=== PATIENT | female | born 1935 | race Caucasian/White ===

== ENCOUNTER 2017-11-21 11:30 | Day surgery (SDC) | payer OTHER ==
[2017-11-21] MEDS ORDERED: BUPIVACAINE 0.25% PF 10 ML VIAL ONE (11:54)
[2017-11-21] MEDS ORDERED: PHENYLEPHRINE 10% OPTH 5ML ONE (11:54)
[2017-11-21] MEDS ORDERED: TETRACAINE HCL 0.5% 2ML OPTH ONE (11:54)
[2017-11-21] MEDS ORDERED: NA CHLORIDE 0.9% 500 ML ONE (11:54)
[2017-11-21] MEDS ORDERED: CYCLOPENTOLATE 1% OPTH 2 ML ONE (11:54)
[2017-11-21] MEDS ORDERED: LIDOCAINE HCL/PF 3.5% OPTH GEL ONE (11:54)
[2017-11-21] MEDS ORDERED: LIDOCAINE 2% INJ, MPF 2 ML 0 ML ONE (11:54)
[2017-11-21] MEDS ORDERED: NS 0.9% VIAL 10 ML ONE (12:07)
[2017-11-21] MEDS ORDERED: EPINEPHRINE/PF 1 MG/ML AMP ONE (12:07)
[2017-11-21] MEDS ORDERED: BALANCED SALT IRRIG PLAIN 500 ML BTL IRR ONE (12:08)
[2017-11-21] MEDS ORDERED: DUOVISC 1 KIT OPTH ONE (12:09)
[2017-11-21] MEDS ORDERED: MOXIFLOXACIN HCL 10 DROPS/ML **OR USE OPTH ONE (12:09)
[2017-11-21] MEDS ORDERED: PHENYLEPHRINE 10% OPTH 5ML OPTH ONE ×2 (12:17→12:22)
[2017-11-21] MEDS ORDERED: CYCLOPENTOLATE 1% OPTH 2 ML OPTH ONE ×2 (12:17→12:22)
[2017-11-21] MEDS ORDERED: PROPOFOL 200 MG/20 ML VIAL IV ONE (13:33)
[2017-11-21] MEDS ORDERED: LIDOCAINE 1% MPF 5 ML VIAL ONE (13:33)
[2017-11-21] MEDS ORDERED: MIDAZOLAM HCL 2 MG/2 ML INJ ONE ×2 (13:39→13:43)
[2017-11-21] MEDS ORDERED: FENTANYL CITR 100 MCG/2 ML ONE (13:39)
[2017-11-21] MEDS ORDERED: LIDOCAINE 1% MPF 2 ML AMPULE ONE (13:47)
--- NOTE | 2017-11-21 14:29 | P.BOP ---
Preoperative diagnosis: Nuclear sclerotic cataract OS Postoperative diagnosis: Same Primary procedure: Phacoemulsification with IOL OS Estimated blood loss: None Anesthesia: Local (Topical with anesthesia for cataract surgery) Complications: None Implants: ZCB00 +19.0 Transferred to: Other (Day surgery) Condition: Good
--- NOTE | 2017-11-22 02:08 | OP ---
Date of Procedure: 11/21/2017 Surgeon: Raine Carreon MD Anesthesiologist: 1. Delonte Messer C.R.N.A. 2. Anatoly Randolph M.D. Preoperative Diagnosis: Nuclear sclerotic cataract, OS (left eye). Operation Performed: Phacoemulsification with intraocular lens implant, left eye. Anesthesia: Per cataract surgery. Complications: None. Description Of Procedure: In the operating room, the patient was prepped and draped in the usual sterile fashion for ophthalmic surgery. A lid speculum was placed in the left eye. Two paracentesis sites were made superiorly and inferiorly in the limbal cornea. Viscoat was placed in the anterior chamber and a crescent blade was used to make a corneal groove and tunnel, and a keratome was used to enter the anterior chamber. Provisc was placed in the anterior chamber and a 360-degree capsulotomy was performed with a cystitome. The lens was hydrodissected with BSS and rotated freely. The lens was removed with a stop and chop technique. A 16.73 phaco CDE was used to remove the lens. Residual cortex was removed with the irrigation and aspiration. Provisc was placed in the capsular bag. A ZCB00+ 19.0 lens was placed in the capsular bag without complications. Irrigation and aspiration were used to remove residual viscoelastic. The paracentesis sites were hydrated with BSS. The wound and paracentesis sites were inspected and found to be watertight. Vigamox 0.07 cc was placed intracamerally at the end of the procedure. The eye was irrigated with balanced salt solution. The eye was patched with a soft cotton patch and Perez metal shield. The patient was returned to day surgery in good condition. Comments: Akten was placed in the eye in day surgery and then irrigated out of the eye with BSS in the OR. Preservative-free 1% lidocaine was placed in the anterior chamber prior to Viscoat. Discharge Instructions: Ms. Link discharged to home in good condition and is to follow up with Dr. Carreon in the morning. THOMAS/VIDHYA Voice ID: [id number] Report ID: [id number] KHAI
== END 2017-11-21 15:04 | disposition home or self-care (01) ==
LOC: OR 11:30
PROVIDERS: ATTEND Ophthalmology Retina Specialist
PROC: 08RK3JZ Replacement of Left Lens with Synthetic Substitute, Percutaneous Approach (ICD-10-PCS; principal; 2017-11-21 12:00)
DX: H25.12 Age-related nuclear cataract, left eye (principal); H40.053 Ocular hypertension, bilateral; I10 Essential (primary) hypertension; E78.00 Pure hypercholesterolemia, unspecified; Z88.0 Allergy status to penicillin; Z88.6 Allergy status to analgesic agent
CPT/HCPCS: 66984; J0171; J2001; J2250; J3010; J3490

== ENCOUNTER 2018-01-23 08:25 | Day surgery (SDC) | payer OTHER ==
[2018-01-23] MEDS ORDERED: NA CHLORIDE 0.9% 500 ML ONE (09:05)
[2018-01-23] MEDS ORDERED: CYCLOPENTOLATE 1% OPTH 2 ML ONE (09:05)
[2018-01-23] MEDS ORDERED: TETRACAINE HCL 0.5% 2ML OPTH ONE (09:05)
[2018-01-23] MEDS ORDERED: LIDOCAINE HCL/PF 3.5% OPTH GEL ONE (09:05)
[2018-01-23] MEDS ORDERED: PHENYLEPHRINE 10% OPTH 5ML ONE (09:05)
[2018-01-23] MEDS ORDERED: LIDOCAINE 2% MPF 5 ML VIAL ONE (09:05)
[2018-01-23] MEDS ORDERED: BUPIVACAINE 0.25% PF 10 ML VIAL ONE (09:05)
[2018-01-23] MEDS ORDERED: CYCLOPENTOLATE 1% OPTH 2 ML OPTH ONE ×2 (09:40→09:45)
[2018-01-23] MEDS ORDERED: PHENYLEPHRINE 10% OPTH 5ML OPTH ONE ×2 (09:40→09:45)
[2018-01-23] MEDS ORDERED: MIDAZOLAM HCL 2 MG/2 ML INJ ONE (10:26)
[2018-01-23] MEDS ORDERED: FENTANYL CITR 100 MCG/2 ML ONE (10:26)
[2018-01-23] MEDS ORDERED: EPINEPHRINE/PF 1 MG/ML AMP ONE (10:53)
[2018-01-23] MEDS ORDERED: DUOVISC 1 KIT OPTH ONE (10:53)
[2018-01-23] MEDS ORDERED: NS 0.9% VIAL 10 ML ONE (10:53)
[2018-01-23] MEDS ORDERED: BALANCED SALT IRRIG PLAIN 500 ML BTL IRR ONE (10:53)
[2018-01-23] MEDS ORDERED: LIDOCAINE 2% INJ, MPF 2 ML 1 ML ONE (10:54)
[2018-01-23] MEDS ORDERED: MOXIFLOXACIN HCL 10 DROPS/ML **OR USE OPTH ONE (10:54)
--- NOTE | 2018-01-23 11:25 | P.BOP ---
Preoperative diagnosis: Nuclear sclerotic cataract OD Postoperative diagnosis: Same Primary procedure: Phacoemulsification with IOL OD Estimated blood loss: None Anesthesia: Local (Topical with anesthesia for cataract surgery) Complications: None Implants: ZCB00 +19.5 Transferred to: Other (Day surgery) Condition: Good
--- NOTE | 2018-01-23 22:16 | OP ---
Date of Procedure: 01/23/2018 Surgeon: Raine Carreon MD Anesthesiologist: Dominick Messer CRNA and Daniele Scales M.D. Preoperative Diagnosis: Nuclear sclerotic cataract, right eye. Operation Performed: Phacoemulsification with intraocular lens implant, right eye. Anesthesia: Per cataract surgery. Complications: None. Description Of Procedure: In the operating room, the patient was prepped and draped in the usual mackenzie rile fashion for ophthalmic surgery. A lid speculum was placed in the right eye. Two paracentesis s ites were made superiorly and inferiorly in the limbal cornea. Viscoat was placed in the anterior ch tim and a crescent blade was used to make a corneal groove and tunnel, and a keratome was used to e nter the anterior chamber. Provisc was placed in the anterior chamber and a 360 degree capsulotomy w as performed with a cystitome. The lens was hydrodissected with BSS and rotated freely. The lens wa s removed with a stop and chop technique. A 15.89 phaco CDE was used to remove the lens. Residual c ortex was removed with the irrigation and aspiration. Provisc was placed in the capsular bag. A ZCB 00 +19.5 lens was placed in the capsular bag without complications. Irrigation and aspiration was us ed to remove residual viscoelastic. The paracentesis sites were hydrated with BSS. The wound and pa racentesis sites were inspected and found to be watertight. Vigamox 0.07 cc was placed intracamerall y at the end of the procedure. The eye was irrigated with balanced salt solution. The eye was patch ed with a soft cotton patch and Perez metal shield. The patient was returned to day surgery in good condition. Comments: Akten was placed in the eye in day surgery and irrigated out of the eye with BSS in the OR . Preservative-free 1% lidocaine was placed in the anterior chamber prior to Viscoat. Discharge Instructions: Ms. Link was discharged home in good condition and is to follow up with Dr. Carreon in the morning. THOMAS/VIDHYA Voice ID: [id number] Report ID: [id number]
== END 2018-01-23 11:59 | disposition home or self-care (01) ==
LOC: OR 08:25
PROVIDERS: ATTEND Ophthalmology Retina Specialist
PROC: 08RJ3JZ Replacement of Right Lens with Synthetic Substitute, Percutaneous Approach (ICD-10-PCS; principal; 2018-01-23 09:30)
DX: H25.11 Age-related nuclear cataract, right eye (principal); H04.123 Dry eye syndrome of bilateral lacrimal glands; H40.053 Ocular hypertension, bilateral; I10 Essential (primary) hypertension; E78.00 Pure hypercholesterolemia, unspecified; Z88.0 Allergy status to penicillin; Z88.3 Allergy status to other anti-infective agents; Z88.6 Allergy status to analgesic agent
CPT/HCPCS: 66984; J0171; J2250; J3010; J3490